=== PATIENT | female | born 1990 | race American Indian/Alaskan Native ===

== ENCOUNTER 2018-08-12 14:08 | Emergency (ER) | payer MEDICAID, OTHER ==
[2018-08-12 14:09] VITALS: BMI 23.6
[2018-08-12 14:16] VITALS: O2SAT 100
[2018-08-12] MEDS ORDERED: Sodium Chloride 0.9% 1,000 ML IV STA (14:58)
[2018-08-12] MEDS ORDERED: DiphenhydrAMINE 50 mg/ml Inj IVP STA (14:59)
[2018-08-12] MEDS ORDERED: DiphenhydrAMINE 50 mg/ml Inj ONE (15:14)
[2018-08-12] MEDS ORDERED: Sodium Chloride 0.9% 1,000 ML ONE (15:14)
--- NOTE | 2018-08-12 15:20 | C.PDOC ---
History Of Present Illness 28 y/o F c no PMHx p/w lightheadedness x 2 days. Patient states while at work yesterday, she felt lightheaded with L sided headache, felt as though she could not drive so took uber home. Today, she continues to feel lightheaded with blurry vision, nausea. She also reports one episode of spinning sensation. Denies any current vertigo but continues to feel lightheaded. Denies fever, chills, vomiting, dyspnea. Time Seen by Provider: 08/12/18 14:22 Chief Complaint (Nursing): Dizziness/Lightheaded Past Medical History Vital Signs: Last Vital Signs Temp 99.0 F 08/12/18 14:14 Pulse 99 H 08/12/18 14:14 Resp 19 08/12/18 14:14 BP 113/66 08/12/18 14:14 Pulse Ox 100 08/12/18 14:14 Primary Care Provider: FAMILY PROVIDER,NO - [facility] ARIEL NEC (11/08/13) Family History: States: No Known Family Hx - Social History Hx Alcohol Use: No Hx Substance Use: No - Immunization History Hx Tetanus Toxoid Vaccination: No Hx Influenza Vaccination: No Hx Pneumococcal Vaccination: No Review Of Systems Except As Marked, All Systems Reviewed And Found Negative. Constitutional: Negative for: Fever Cardiovascular: Negative for: Chest Pain Physical Exam - Physical Exam Additional Physical Exam Comments: gen nad head nc/at eyes perrl, no nystagmus ent mmm neck supple chest no tenderness cv reg rate lungs cta b/l abd soft, nt back no cva tenderness skin no rash extremities no edema neuro alert, steady gait, cn ii to xii intact, motor 5/5 x 4, sensation to light touch intact bilaterally, ftn and hts normal, romberg normal ED Course And Treatment - Laboratory Results Result Diagrams: 08/12/18 15:53 08/12/18 15:53 O2 Sat by Pulse Oximetry: 100 Medical Decision Making Medical Decision Making: After treatment, patient feels much better. Will discharge, f/u primary care, return to ED for worsening pain, fever, vomiting, dyspnea, dizziness, or any other problem. Disposition - Disposition Referrals: [facility] [Outside] Disposition: HOME/ ROUTINE Disposition Time: 17:19 Condition: STABLE Prescriptions: Acetaminophen [Tylenol 325mg tab] 2 tab PO Q4H #30 tab DiphenhydrAMINE [Benadryl] 2 cap PO Q8 #25 cap Ibuprofen [Motrin] 1 tab PO Q6 #30 tab Ondansetron ODT [Zofran ODT] 4 mg PO Q8 #12 odt Instructions: Headache, Adult Forms: [facility] (Guyanese), Work Excuse - Clinical Impression Clinical Impression: Dizziness, Headache
[2018-08-12 16:02] LABS: BASO % 0.7 % (0.0-2.0); EOS # 0.1 K/uL (0.0-0.7); EOS % 2.2 % (0.0-4.0); HEMOGLOBIN 12.2 g/dL (11.0-16.0); LYMPH # 1.7 K/uL (1.0-4.3); LYMPH % 27.5 % (20.0-40.0); MEAN CELL VOLUME 84.6 fL (81.0-99.0); MEAN CORPUSCULAR HGB CONC 33.1 g/dL (33.0-37.0); MEAN PLATELET VOLUME 10.3 fL (7.2-11.7); MONO # 0.6 K/uL (0.0-0.8); MONO % 9.7 % (0.0-10.0); NEUT # 3.8 K/uL (1.8-7.0); NEUT % 59.9 % (50.0-75.0); RBC 4.36 Mil/uL (3.80-5.20); RED CELL DISTRIBUTION WIDTH 13.9 % (11.5-14.5); WHITE BLOOD COUNT 6.4 K/uL (4.8-10.8)
[2018-08-12 16:04] LABS: HCG,QUALITATIVE URINE NEGATIVE (NEGATIVE)
[2018-08-12 16:10] LABS: SQUAMOUS EPITHIAL 2 /hpf (0-5); URINE AMORPHOUS SEDIMENT RARE /ul (<OCC); URINE BACTERIA OCC (<OCC); URINE BILIRUBIN NEGATIVE (NEGATIVE); URINE BLOOD NEGATIVE (NEGATIVE); URINE CLARITY Hazy (Clear); URINE COLOR Yellow (YELLOW); URINE GLUCOSE (UA) NORMAL (Normal); URINE LEUKOCYTE ESTERASE 2+ Leu/uL (Negative); URINE PROTEIN NEGATIVE (NEGATIVE); URINE UROBILINOGEN NORMAL mg/dL (0.2-1.0)
[2018-08-12 16:19] LABS: ALB/GLOB RATIO 1.3 (1.0-2.1); ALBUMIN 4.4 g/dL (3.5-5.0); ALT/SGPT 13 U/L (9-52); AST/SGOT 24 U/L (14-36); BLOOD UREA NITROGEN 13 mg/dL (7-17); CALCIUM 9.6 mg/dl (8.6-10.4); GFR NON-AFRICAN AMERICAN > 60
[2018-08-12 17:03] VITALS: BP 108/74; PULSE 75; RESP 20; TEMP 98.4
== END 2018-08-12 17:31 | disposition home or self-care (01) ==
LOC: C.ER 14:08
DX: R42 Dizziness and giddiness (principal); R51 Headache
CPT/HCPCS: 80053; 81001; 81025; 84703; 85025; 87086; 87181; 96361; 96374; 96375; 99285; J1200; J1885; J7030